=== PATIENT | male | born 1975 | race Caucasian/White ===

== ENCOUNTER 2017-01-28 14:00 | Inpatient (IN) | payer BC ==
[~2017-01-28] VITALS: Ht 188 cm; Wt 87.3 kg
--- NOTE | ~2017-01-28 | OR ---
PATIENT'S NAME: VALENTIN DE LA VEGA [facility] AGE: 41 Y [address] ROOM: [address] [address] LOCATION: GPCU ADMIT DATE: 01/28/2017 OR/Procedure Report DISCHARGE DATE: FAMILY PHYSICIAN: Yvon Wyatt MD ATTENDING PHYSICIAN: Casa Combs SURGEON: Casa Combs DO DOCUMENT DESIGN SPECIALIST: DATE OF PROCEDURE: 01/30/2017 PREOPERATIVE DIAGNOSIS: Recurrent left spontaneous pneumothorax. POSTOPERATIVE DIAGNOSIS: Recurrent left spontaneous pneumothorax. PROCEDURE PERFORMED: Left thoracoscopy with apical bleb resection and talc pleurodesis. BRIEF HISTORY: Mr. De La Vega is a 41-year-old white male with the above-noted diagnosis. He has had a recurrence of his left pneumothorax x2. In fact, I recently clamped him and did a again. Therefore, he has been brought to the operative suite today for thoracoscopy. He was sterilely prepped and draped after placing him in a lateral decubitus position. His previous chest tube was removed and suture material removed before sterilely prepping and draping the area. Thoracoscope was introduced through a new stab incision and the pleural space inspected. The lung was nicely decompressed. There was some evidence of previous scarring and bleb formation at the very apex and through accessory incisions formed anteriorly and posteriorly. Endoscopic stapling device was used to staple the apex and the specimen was removed for permanent evaluation. We then instilled aerosolized talc into the pleural space. Advanced the new chest tube and a 24-[place] Syed into the pleural space and then injected 0.25% Marcaine with epinephrine into the intercostal spaces and then closed each incision with 2-0 Vicryl and 4-0 Monocryl. Chest tube was secured to the chest wall with an 0 silk and chest tube was placed to suction. He was extubated and transferred to recovery room in stable condition. DO HAYDEE VALENZUELA/kennethl /[id number] d: 02/03/17 0012 t: 02/03/17 1045, OPERATIVE SUMMARY
--- NOTE | ~2017-01-28 | DS ---
PATIENT'S NAME: VALENTIN DE LA VEGA [facility] AGE: 41 Y [address] ROOM: [id number] [place], [place] [address] LOCATION: GPCU ADMIT DATE: 01/28/2017 Discharge Summary DISCHARGE DATE: 02/04/2017 FAMILY PHYSICIAN: Yvon Wyatt MD ATTENDING PHYSICIAN: Casa Sharp HOSPITAL COURSE: The patient is a 41-year-old white male who was transferred here from [place] with an unresolved left spontaneous pneumothorax with a history of 2 previous episodes of left spontaneous pneumothorax. He came with a chest tube in place. At the time of his arrival, his chest tube did not reveal any air leak. He was admitted by Dr. Sharp. His chest tube was clamped at midnight, and the following morning, he did show evidence of again a pneumothorax. Therefore, the patient was taken down to the operative suite for a left thoracoscopy with apical bleb resection and talc pleurodesis. He tolerated this procedure without complication. He transferred back up to the PCU following the procedure. The patient was placed on a CABLE ENGINEER OUTSIDE PLANT. At the time of the procedure, a wedge resection of a bleb was obtained for pathology. It revealed emphysematous changes. The patient's chest tube was monitored for air leak as well as fluid quantity. We did leave the chest tube to suction for a couple of days. Then placed it to water seal and clamped the chest tube. The patient did work with Pulmonary Rehab for reconditioning. Eventually, we were able to discontinue the chest tube. There was no further evidence of reaccumulation of a pneumothorax once the chest tube was discontinued. Therefore, the patient was found stable to discharge to home on February 04, 2017. Discharge orders include a diet with no restrictions. Activity levels which require no pulling, pushing, or lifting greater than 5 pounds until February 27, 2017. We have asked the patient to work with Pulmonary Rehab on an outpatient basis. He may remove his chest tube site dressing on 02/05/2017. He may shower. He is to see Dr. Sharp in 2 weeks with a chest x- ray at the time of the office visit. Smoking cessation was discussed. The patient was offered nicotine patches. DISCHARGE MEDICATIONS: Include: 1. Nicotine patch topical 7 mg daily. 2. Colace 100 mg twice daily. 3. [place] 5/325 one to two every 4 to 6 hours as needed. The patient verbalized understanding of the discharge orders. The patient discharged to home in stable condition. KARY LUZ APRN FOR CASA SHARP DO DLQ/modl PATIENT'S NAME: VALENTIN DE LA VEGA [facility] AGE: 41 Y [address] ROOM: [place] [address] [facility] ADMIT DATE: 01/28/2017 Discharge Summary DISCHARGE DATE: 02/04/2017 FAMILY PHYSICIAN: Yvon Wyatt MD ATTENDING PHYSICIAN: Casa Sharp /[id number] d: 02/23/17 1319 t: 02/24/17 1452, DISCHARGE SUMMARY
[2017-01-28] MEDS ORDERED: ADVIL200 MG PO (14:35)
[2017-01-28] MEDS ORDERED: NICOTINE PATCH1 EAC2 TOP (14:38)
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
--- NOTE | 2017-01-28 19:22 | NUR ---
Significant Event: A/O X3. CT SITE LT.LATERAL CHEST TO WATER SEAL. NO BUBBLING OR FLUCUATIONS NOTED. 20 ML BLOODY DRAINAGE OUT. Follow up: CONT. TO MONITER RESP. STATUS. CLAMP CT AT MIDNOC AND PORTABLE CHEST X-RAY IN A.M.
--- NOTE | 2017-01-29 04:46 | NUR ---
Significant Event: VSS.RA. Pt c/o pain to CT site and back, norco given and toradol with relief. Pt dressing is CDI. CT clamped at midnight. Apprx 10cc out. Up ad meaghan Follow up:CXR in AM
--- NOTE | 2017-01-29 11:45 | NUR ---
Introduced self and role of care management to patient and his mother. Patient lives in [place] with his . Mother says she will be here later, as she is meeting her mother to take their children for the w/e. Patient plans to go home when ready for discharge. Will follow.
--- NOTE | 2017-01-29 17:30 | NUR ---
Significant Event: Patient A/O x 3. Up independently in room. VSS on RA. Chest tube was unclamped at 0733 and remainds to waterseal. Fluctuations with respirations. Crepitus has remain unchanged throughout the day. More prominent around chest tube site and extends minimally to back. 20 CC out of chest tube. Last pain medication at 1434 (2 [place] and toradol). Patient states pain has been tolerable today. Had been NPO for a procedure, but cancelled until tomorrow. Will be NPO after midnight. Follow up: Continue as per plan of care. Procedure with Dr. Combs tomorrow. NPO after midnight. Patient requests something for bowels/bloating.
--- NOTE | 2017-01-30 05:30 | NUR ---
Significant Event: A/O x3. Afebrile. Pain in left chest tube site, gave scheduled toradol and norco x3. VSS on RA. crackles heard in left side. Crepitus around chest tube site. 10ml out of CT. NPO since midnight. Follow up: Parencentesis today.
--- NOTE | 2017-01-30 18:33 | NUR ---
Significant events: Patient is A&Ox3. Patient is largely independent, but requires assistance with chest tube at times. Family assists when present. Is able to void via urinal standing at bedside. Vital signs: HR 60-90's, SBP 100-115. Chest tube on left lateral side, with 35 mls of drainage out. Patient had procedure performed in OR this AM and returned with a morphine POT ROOM SUPERVISOR pump. Continuous rate: 1 mg, bolus: 2 mg, lockout: 10 minutes. Patient had 37 attempts with 24 injections for a total of 32 mg given. Patient reported decreased pain as the afternoon went on. Crepitus present on the left lateral side/back near chest tube site. IV in right wrist.
[2017-01-31 04:35] LABS: HEMATOCRIT 37.7 % (37.0-53.0); HEMOGLOBIN 12.8 g/dL (12.0-17.0); MCH 31.8 pg (27.0-34.0); MCV 93.8 fl (83.0-98.0); MPV 9.5 fl (9.4-12.4); PLATELET COUNT 338 K/uL (150-450); RBC 4.02 M/uL (4.00-6.00); RDW-CV 12.7 % (11.9-14.6); WBC 11.1 K/uL (4.0-11.0)
[2017-01-31 04:51] LABS: ALBUMIN 3.1 gm/dL (3.5-5.0); ANION GAP 14.8 (10.0-19.0); BLOOD UREA NITROGEN 12 mg/dL (6-24); CALCIUM 8.4 mg/dL (8.5-10.5); CHLORIDE 104 mMol/L (96-110); CO2 22 mMol/L (22-32); CREATININE 1.1 mg/dL (0.6-1.3); ESTIMATED GFR (MDRD EQUATION) > 60; PHOSPHORUS 2.8 mg/dL (2.5-4.9); POTASSIUM 3.8 mMol/L (3.7-5.1); SODIUM 137 mMol/L (135-145)
--- NOTE | 2017-01-31 05:06 | NUR ---
Significant events: Pt A/Ox3. VSS. Up 1PA. CT to suction wtih 80mL out. Morphine SPRINKLER HELPER pump for pain, 1mg cont., 2mg demand, 36/34 for a total of 76.8mg delivered. Small amount of crepitus noted to upper anterior side of dressing, slightly coarse with expiration. NS at 50mL/hr, ancef continues. CT site CDI. Slept most of shift.
[2017-01-31 06:32] LABS: ABSOLUTE NEUTROPHIL CT (ANC) 8.3 K/uL (1.4-9.0); BANDED NEUTROPHIL # 0.1 K/uL (0.0-0.1); BANDED NEUTROPHILS % 1 %; LYMPHOCYTE # 1.7 K/uL (0.8-4.0); LYMPHOCYTE % 15 %; SEGMENTED NEUTROPHIL # 8.2 K/uL (1.4-9.0); SEGMENTED NEUTROPHIL % 74 %
--- NOTE | 2017-01-31 17:28 | NUR ---
Significant Events: Patient A&Ox3. Is cooperative with cares. Is largely independent, but can require assistance with chest tube when ambulating. Family involved in cares when present. Has been up in chair the majority of the day. Vital signs stable with slight tachycardia this morning (HR low 100's). Patient had 72 ml of serosanguinous drainage out of left chest tube. IV in right wrist dislodged this morning and a new one was started in the left hand with no complications. Continuous POWDER EXPERT discontinued by MD. 2mg demand only with 10 min lockout and 40 mg in 4 hr lockout. Voids per urinal with no BM today. Gave [place] x1 approximately 1530. Continue per plan of care.
--- NOTE | 2017-02-01 04:31 | NUR ---
Significant events: Pt A/Ox3. VSS. On RA-1L/NC when asleep. CT to suction with 20mL out. Morphine PROPOSAL DIRECTOR continues, demand only. Pt had 15 attempts and 13 deliveries for a total of 25mg. Scheduled Tordol continues. [place] given at HS. Reglan at HS for nausea. L) CT site CDI, small amount of crepitus to L) upper side. Up SBA. NS at TKO. Pt had partial shower with family assistance. Slept more comfortably in recliner. Pleasant and cooperative with cares.
--- NOTE | 2017-02-01 17:34 | NUR ---
Significant Event: Alert and oriented X 3. Room air, does use 1L O2 while sleeping to keep monitor from alarming. SBP 100's and 110's. HR 90's. O2 93 & 97. Chest tube changed over to water seal at 1115, no complications. 40 ml out this shift. Crepitus upper chest and upper left back/above dressing. NS at 10 ml/hr TKO. Morphine AUDITING MANAGER set to demand only, 19 attemps and 19 delivered this shift. [place] given at 1553 for pain of a 7. Can become agitated at times/calm during this shift. Regular diet. SBA-Independent, walked 2 laps with PT this shift. Would like to walk again this evening. Pleasant and cooperative with cares. Follow up:
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
--- NOTE | 2017-02-02 11:40 | NUR ---
A-SCREENED D/T LOS CT TO WATER SEAL; X-RAY TODAY TO SEE IF CT CAN BE PULLED. LAST BM ON 01/29; BOWEL MEDS BEING GIVEN HT: 74 IN. WT: 89.8 KG. BMI: 24.5 LABS: NA 137, K+ 3.8, GLU 118, BUN 12, INTAKE RN 1.1, ALB 3.1 MEDS: MORPHINE, COLACE, MIRALAX, PRN BOWEL MEDS, REGLAN, NORCO, PEPCID DIET RX: REGULAR. PO INTAKE 75-100% EST NUTR NEEDS: [id number] KCALS (25-30 KCALS/KG) 69-87 GM PROTEIN (0.8-1.0 GM/KG) 1 ML FLUID/KCAL D-NOT AT NUTRITION RISK; NO NUTRITION DX IDENTIFIED I-CONTINUE W/CURRENT DIET RX M/E-WILL ASSIST NEEDED
--- NOTE | 2017-02-02 17:08 | NUR ---
Significant Event: Alert and oriented x 3. Room Air. SBP 100's and 110's. HR 90's and 100's. VACUUM PAN TENDER discontinued 1145 with 22 demands and 22 deliveries. [place] PO given X 3, last given at 1455 with pain of 5/10. Patient has walked 25 times around full PCU unit. Chest tube to left chest to water seal, 16 ml out this shift. ETCO2 discontinued due to amount of walking patient has done this shift. Sore to coccyx, patient applying aloe cream. Patient is independent. Pleasant and cooperative with cares. Follow up:
--- NOTE | 2017-02-03 05:17 | NUR ---
A&O. Independent in room and halls. Ambulates frequently in halls. Chest tube left side- to water seal. 40ml out this shift. Colace, Miralax, and MOM given last night. Patient had BM and a large amount of flatus. Open sore to coccyx- aloe cream applied. [place] given x 3 this shift. Chest xray completed this morning. IV TKO.
--- NOTE | 2017-02-03 16:47 | NUR ---
Significant Event: A/O x3, cooperative with cares. VSS, SBPs 100-110s, HRs 80-90s, on room air. 2 tabs of [place] given at 1246 for c/o pain, relief noted. L) lateral chest tube with 30 ml out this shift; dc'd by Dr. Combs. C/O feeling full, bloated et needing to pass gas; patient given prune juice with melted butter et encouraged to walk. Patient up ad meaghan in room et in sloan; ambulated several laps today. Follow up: ? home tomorrow
--- NOTE | 2017-02-04 04:37 | NUR ---
Significant Event:VSS. RA. CT DRESSING CDI. PT C/O PAIN TO ABDOMEN/CT SITE. PT HAD BM THIS SHIFT. Follow up:CXR, POSSIBLE DISMISSAL 02/04
[2017-02-04] MEDS ORDERED: COLACE100 MG PO (09:31)
[2017-02-04] MEDS ORDERED: NORCO 7.5-3251 EACH PO (09:48)
--- NOTE | 2017-02-04 10:30 | NUR ---
Spoke with patient and plans home today. Denies discharge needs. Says his MIL is coming to take him home. Will follow.
--- NOTE | 2017-02-04 12:42 | NUR ---
Significant Event: A/O x3, cooperative with cares. VSS, SBPs 100-110s, HRs 90s, on room air. 2 tabs of [place] given at 1048 for anticipatory pain r/t trip home. Up in room ad meaghan; ambulate sloan ad meaghan. Dismissal instructions given to patient et in-laws, verbalized understanding. Dismissed to front lobby per w/c accompanied by nursing professor Follow up:
== END 2017-02-04 11:20 | disposition disaster alternative care site (69) | DRG 164 ==
LOC: GPCU 14:14
PROVIDERS: ADMIT Thoracic Surgery (Cardiothoracic Vascular Surgery)
PROC: 0W9B40Z Drainage of Left Pleural Cavity with Drainage Device, Percutaneous Endoscopic Approach (ICD-10-PCS; principal; 2017-01-30)
PROC: 3E0L3GC Introduction of Other Therapeutic Substance into Pleural Cavity, Percutaneous Approach (ICD-10-PCS; principal; 2017-01-30)
PROC: 0BQG4ZZ Repair Left Upper Lung Lobe, Percutaneous Endoscopic Approach (ICD-10-PCS; principal; 2017-01-30)
DX: J93.83 Other pneumothorax (principal); J90 Pleural effusion, not elsewhere classified; Z87.01 Personal history of pneumonia (recurrent)
CPT/HCPCS: G0237; G0424; J0690; J1100; J1170; J1644; J1650; J1885; J2250; J2270; J2405; J2765; J3010; J7030